=== PATIENT | female | born 1995 | race Caucasian/White ===

== ENCOUNTER → 2017-07-22 | Outpatient (CLI) | payer OTHER ==
--- NOTE | 2017-07-22 15:08 | DIAGNOSTIC IMAGING REPORT ---
DOUBLE CONTRAST UPPER GI SERIES CLINICAL HISTORY: Gastroesophageal reflux disease. COMPARISON STUDY: None. FLUOROSCOPY TIME: 1.8. FINDINGS: 24 fluoroscopic images were obtained. Esophageal motility was normal. No esophageal mass or stricture was identified. No hiatal hernia was identified. No reflux was elicited. Gastric fold pattern was normal. Duodenal fold pattern was normal. Ligament of Treitz was normal in position. Caliber of opacified jejunum was normal. IMPRESSION: Unremarkable double contrast upper GI series. Electronically signed by: Regan Oakes M.D. 07/22/2017 3:06 PM Dictated Date/Time: 07/22/2017 3:04 PM
== END | disposition home or self-care (01) ==
LOC: C.RAD 12:17
PROVIDERS: ATTEND Family Medicine
DX: K21.9 Gastro-esophageal reflux disease without esophagitis (principal)